=== PATIENT | female | born 1940 | race Caucasian/White ===

== ENCOUNTER 2024-11-06 21:02 | Inpatient (IN) | payer OTHER ==
[~2024-11-06] VITALS: Ht 170.2 cm; Wt 52.2 kg
--- NOTE | 2024-11-06 21:24 | ED.PDOC ---
History of Present Illness HPI Comments 84-year-old female that came to ER via EMS due to nausea vomiting. Per EMS, patient was picked up at home, where patient has been having episodes of nausea and vomiting all day. Noted loss of appetite for fear of throwing up when she eats. She fell asleep, only to wake up still feeling nauseated, she became very anxious and short of breath. Patient does have history of CHF, was saturating 90% on room air on scene with a blood sugar of 199 Chief Complaint: Nausea and vomiting Time Seen by MD: 21:23 Allergies: Coded Allergies: Morphine and Codeine (Verified Allergy, Unknown, 11/06/24) Information Source: Patient Mode of Arrival: EMS Severity: Moderate Timing: Hours Duration: Since onset Prehospital treatment: None Past Medical History PAST MEDICAL HISTORY: Cancer, CHF Surgical History (Other): Colonoscopy bag, indwelling Boucher catheter FINANCIAL SERVICES AGENT History: Denies all FINANCIAL SERVICES AGENT Hx Family History Family History: Reviewed,noncontributory to illness Social History Smoker: Non-Smoker Alcohol: Denies ETOH Use Drugs: Denies Drug Use Lives In: Home Constitutional: reports: weakness; denies: chills, diaphoresis, fatigue, fever, malaise, sweats, others EENTM: denies: blurred vision, double vision, ear bleeding, ear discharge, ear drainage, ear pain, ear ringing, eye pain, eye redness, hearing loss, mouth pain, mouth swelling, nasal discharge, nose bleeding, nose congestion, nose pain, photophobia, tearing, throat pain, throat swelling, voice changes, others Respiratory: reports: shortness of breath, SOB with excertion; denies: cough, hemoptysis, orthopnea, SOB at rest, stridor, wheezing, others Cardiovascular: denies: chest pain, dizzy spells, diaphoresis, Dyspnea on exertion, edema, irregular heart beat, left arm pain, lightheadedness, palpitations, PND, syncope, others Gastrointestinal: reports: nausea, poor appetite, vomiting; denies: abdomen distended, abdominal pain, blood streaked bowels, constipated, diarrhea, dysphagia, difficulty swallowing, hematemesis, melena, poor fluid intake, rectal bleeding, rectal pain, others Genitourinary: denies: abnormal vagina bleeding, burning, dyspareunia, dysuria, flank pain, frequency, hematuria, incontinence, pain, , vagina discharge, urgency, others Neurological: denies: dizziness, fainting, headache, left sided numbness, left sided weakness, numbness, paresthesia, pre-existing deficit, right sided numbness, right sided weakness, seizure, speech problems, tingling, tremors, weakness, others Musculoskeletal: denies: back pain, gout, joint pain, joint swelling, muscle pain, muscle stiffness, neck pain, others Integumetry: denies: bruises, change in color, change in hair/nails, dryness, laceration, lesions, lumps, rash, wounds, others Allergic/Immunocompromised: denies: Difficulty Healing, Frequent Infections, Hives, Itching, others Hematologic/Lymphatic: denies: anemia, blood clots, easy bleeding, easy bruising, swollen glands, others Endocrine: denies: excessive hunger, excessive sweating, excessive thirst, excessive urination, flushing, intolerance to cold, intolerance to heat, unexplained weight gain, unexplained weight loss, others Psychiatric: reports: anxiety; denies: bipolar disorder, depression, hopeless, panic disorder, schizophrenia, sleepless, suicidal, others Physical Exam General Appearance: Mild Distress, Normal HEENT: Normal ENT Inspection, Pharynx Normal, TMs Normal Neck: Full Range of Motion, Non-Tender, Normal, Normal Inspection Respiratory: Chest Non-Tender, Lungs Clear, No Accessory Muscle Use, No Respiratory Distress, Normal Breath Sounds Cardiovascular: No Edema, No JVD, No Murmur, No Gallop, Normal Peripheral Pulses, Regular Rate/Rhythm Breast Exam: Deferred Gastrointestinal: No Organomegaly, Non Tender, No Pulsatile Mass, Normal Bowel Sounds, Soft Genitalia: Deferred Pelvic: Deferred Rectal: Deferred Extremities: No calf tenderness, Normal capillary refill, Normal inspection, Normal range of motion, Non-tender, No pedal edema Musculoskeletal : Apperance: Normal Neurologic: Alert, camera person II-XII nml as Tested, No Motor Deficits, Normal Affect, Normal Mood, No Sensory Deficits Cerebellar Function: Normal Reflexes: Normal Skin: Dry, Normal Color, Warm Lymphatic: No Adenopathy Was a procedure done? Was a procedure done?: No EKG EKG : Pulse Rate (adult): 96 Cardiac Rhythm: NSR Hypertrophy: LVH Differential Dx Considerations may include: Electrolyte imbalance, gastritis, dehydration, urinary tract infection X-Ray, Labs, Meds, VS Vital Signs Date Time Temp Pulse Resp B/P (MAP) Pulse Ox O2 Delivery O2 Flow Rate FiO2 11/06/24 21:24 96 11/06/24 21:11 98.4 94 20 116/66 (83) 94 11/06/24 21:05 96 Lab Test 11/07/24 00:00 11/06/24 23:09 Range/Units Troponin I High Sensitivity Pending 75 *H </=34 ng/L White Blood Count 12.5 H 4.4-10.8 10^3/uL Red Blood Count 4.05 4.0-5.20 10^6/uL Hemoglobin 12.1 L 12.2-16.2 g/dL Hematocrit 36.7 36.0-46.0 % Mean Corpuscular Volume 90.7 80.0-100.0 fL Mean Corpuscular Hemoglobin 29.8 28.0-32.0 pg Mean Corpuscular Hemoglobin Concent 32.9 32.0-36.0 g/dL Red Cell Distribution Width 14.8 H 11.8-14.3 % Platelet Count 243 140-450 10^3/uL Mean Platelet Volume 9.1 6.9-10.8 fL Neutrophils (%) (Auto) 72.6 37.0-80.0 % Lymphocytes (%) (Auto) 21.2 10.0-50.0 % Monocytes (%) (Auto) 6.0 0.0-12.0 % Eosinophils (%) (Auto) 0.0 0.0-7.0 % Basophils (%) (Auto) 0.2 0.0-2.0 % Neutrophils # (Auto) 9.1 H 1.6-8.6 10 ^3/uL Lymphocytes # (Auto) 2.6 0.4-5.4 10 ^3/uL Monocytes # (Auto) 0.8 0-1.3 10 ^3/uL Eosinophils # (Auto) 0 0-0.8 10 ^3/uL Basophils # (Auto) 0 0-0.2 10 ^3/uL Nucleated Red Blood Cells 0.1 % Sodium Level 141 136-145 mmol/L Potassium Level 5.2 H 3.5-5.1 mmol/L Chloride Level 106 98-107 mmol/L Carbon Dioxide Level 27 20-31 mmol/L Anion Gap 8 5-15 Blood Urea Nitrogen 35 H 9-23 mg/dL Creatinine 1.47 H 0.550-1.02 mg/dL Glomerular Filtration Rate Calc 35 >90 mL/min BUN/Creatinine Ratio 23.8 H 10.0-20.0 Serum Glucose 199 H 74-106 mg/dL Calcium Level 10.3 8.7-10.4 mg/dL Magnesium Level 2.2 1.6-2.6 mg/dL Total Bilirubin 1.0 0.2-1.0 mg/dL Aspartate Amino Transferase (AST) 37 13-40 U/L Alanine Aminotransferase (ALT) 20 7-40 U/L Alkaline Phosphatase 100 46-116 U/L Total Protein 6.1 5.7-8.2 g/dL Albumin 3.9 3.2-4.8 g/dL Lipase 39 12-53 U/L Current Medications Medications (Trade) Dose Ordered Sig/Mike Route Start Time Stop Time Status Last Admin Sodium Chloride 1,000 ml @ 1,000 mls/hr Q1H ONCE IV 11/06/24 23:00 11/06/24 23:59 DC 11/06/24 23:48 Ondansetron HCl (Zofran) 4 mg ONCE ONCE IV 11/07/24 00:00 11/07/24 00:01 DC 11/07/24 00:33 [place] [address] Ph: [phone] DIAGNOSTIC IMAGING Diagnostic Imaging Report : [id number] Signed PATIENT: JOSIAH HITCHCOCK ACCT: [id number] UNIT: [id number] : 1940 LOC: ER ROOM / BED: / AGE / SEX: 84 / F ADM STATUS: REG ER SERVICE [id number] ORDERING PHYSICIAN: ANNE ALVAREZ MD PROCEDURE(s): ABPL - CT AB PEL WO CON-NO ORAL OR IV REASON: vomiting ORDER NUMBER(s): [id number], ACCESSION NUMBER(s): [id number] Exam: CT CT AB PEL WO CON-NO ORAL OR IV History: vomiting Comparison Study: None available at time of dictation. Technique: Multidetector spiral CT of the abdomen was performed from lung bases to pubic symphysis. Imaging was performed without IV contrast. Axial, coronal and sagittal multiplanar reformats were obtained from the axial data set by the technologist. Radiation Dose : 1. Abdomen/Pelvis: CTDIvol 5 mGy, DLP 284 mGy*cm. Findings: Evaluation of solid organs is limited due to lack of intravenous contrast use. Lung Bases: Moderate right and small left pleural effusions. 7 mm pulmonary nodule in the right lower lobe. Mild cardiomegaly. Liver: Hepatomegaly No focal lesions. Gallbladder and Biliary Tree: Gallbladder is surgically absent. Spleen: Unremarkable Pancreas: The pancreas is grossly normal in appearance. Adrenal Glands: Unremarkable Kidneys: Kidneys are grossly normal without calculi or hydronephrosis. Bladder: Bladder is decompressed with a Boucher catheter and cannot be adequately assessed. Bowel: The stomach is grossly normal in appearance. Postsurgical changes of the colon consistent with partial colectomy. Left lower quadrant colostomy. The appendix is not visualized; however, no secondary findings of acute appendicitis identified. Ascites: Absent Lymphadenopathy: No mesenteric, retroperitoneal or periportal lymphadenopathy. Abdominal Wall and Mesentery: Unremarkable. Vasculature: The visualized abdominal aorta is normal in size and caliber. Evaluation of abdominal and pelvic vessels is limited due to lack of intravenous contrast. Pelvic Organs: Unremarkable Musculoskeletal: Levoscoliosis of the lumbar spine. Degenerative changes of the left hip joint with small calcific densities surrounding the joint space. 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 Moderate right and small left pleural effusions. 7 mm pulmonary nodule in the right lower lobe. Consider further evaluation with nonemergent CT chest. Ancillary findings as described above. END IMPRESSION: ATED BY: GAIL MARTÍNEZ DO DICTATED DATE/TIME: 11/07/2430 SIGNED BY: GAIL MARTÍNEZ DO SIGNED DATE/TIME: 11/07/2430 CC: 1st troponin is 75. EKG shows no signs of ischemia. White blood cell count is 12.5. Potassium 5.2. BUN 35 creatinine 1.5. Lipase Time of 1ST Reevaluation: 21:18 Reevaluation 1ST: Unchanged Patient Education/Counseling: Diagnosis, Treatment Family Education/Counseling: No Family Present Departure 1 Departure Time of Disposition: 00:40 Impression: Primary Impression: Vomiting Qualified Codes: R11.2 - Nausea with vomiting, unspecified Additional Impressions: Failure to thrive Qualified Codes: R62.7 - Adult failure to thrive Hyperkalemia Acute kidney injury Dehydration Colostomy care Elevated troponin Pneumonia Qualified Codes: J18.9 - Pneumonia, unspecified organism Pleural effusion Pulmonary nodule Disposition: ADMITTED INPATIENT Admit to: ICU Condition: Critical Discharged With: Self Critical Care Note Critical Care Time?: Yes (45 min-critical care time only) Stability Stability form required: No Heart Score Heart Score: Heart Score Response (Comments) Value History N/A 0 EKG N/A 0 Age N/A 0 Risk Factors N/A 0 Troponin N/A 0 Total 0 I personally scribed for ANNE ALVAREZ MD ([email or web address]) on 11/06/24 at 21:23. Electronically submitted by Kerwin Aguirre ([email or web address]). ANNE ALVAREZ MD Nov 06, 2024 21:23
[2024-11-06 23:25] LABS: Basophils # (auto) 0 10 ^3/uL (0-0.2); Basophils % (auto) 0.2 % (0.0-2.0); Eosinophils # (auto) 0 10 ^3/uL (0-0.8); Hematocrit 36.7 % (36.0-46.0); Hemoglobin 12.1 g/dL (12.2-16.2); Lymphocytes # (auto) 2.6 10 ^3/uL (0.4-5.4); Lymphocytes % (auto) 21.2 % (10.0-50.0); Mean Corpuscular Hemoglobin 29.8 pg (28.0-32.0); Mean Corpuscular Hgb Conc. 32.9 g/dL (32.0-36.0); Mean Corpuscular Volume 90.7 fL (80.0-100.0); Monocytes # (auto) 0.8 10 ^3/uL (0-1.3); Neutrophils # (auto) 9.1 10 ^3/uL (1.6-8.6); Neutrophils % (auto) 72.6 % (37.0-80.0); Nucleated Red Blood Cells % 0.1 %; Platelet Count (auto) 243 10^3/uL (140-450); Red Blood Cells 4.05 10^6/uL (4.0-5.20); Red Cell Distribution Width 14.8 % (11.8-14.3); White Blood Cell 12.5 10^3/uL (4.4-10.8)
[2024-11-06 23:38] LABS: Alanine Aminotransferase 20 U/L (7-40); Albumin 3.9 g/dL (3.2-4.8); Alkaline Phosphatase 100 U/L (46-116); Anion Gap 8 (5-15); Aspartate Aminotransferase 37 U/L (13-40); BUN/Creatinine Ratio 23.8 (10.0-20.0); Calcium 10.3 mg/dL (8.7-10.4); Carbon Dioxide 27 mmol/L (20-31); Chloride 106 mmol/L (98-107); Magnesium 2.2 mg/dL (1.6-2.6); Sodium 141 mmol/L (136-145)
[2024-11-06 23:39] LABS: Total Protein 6.1 g/dL (5.7-8.2)
--- NOTE | 2024-11-06 23:44 | DVH ---
CHEST RADIOGRAPH Indication: nauseau Technique: Single frontal view of the chest was obtained Comparison: None Findings/ IMPRESSION: Small bilateral pleural effusions with superimposed infection not excluded.
[2024-11-06] MEDS: SODIUM CHLORIDE 0.9% 1,000 ML IV ONE (23:48)
[2024-11-07] LABS: Blood Urea Nitrogen 35 mg/dL (9-23); Glucose 199 mg/dL (74-106); Potassium 5.2 mmol/L (3.5-5.1)
[2024-11-07 00:12] LABS: Lipase 39 U/L (12-53)
[2024-11-07] MEDS: ONDANSETRON HCL 4 MG/2 ML VIAL IV ONE (00:33)
--- NOTE | 2024-11-07 00:34 | DVH ---
Exam: CT CT AB PEL WO CON-NO ORAL OR IV History: vomiting Comparison Study: None available at time of dictation. Technique: Multidetector spiral CT of the abdomen was performed from lung bases to pubic symphysis. Imaging was performed without IV contrast. Axial, coronal and sagittal multiplanar reformats were ob tained from the axial data set by the technologist. Radiation Dose : 1. Abdomen/Pelvis: CTDIvol 5 mGy, DLP 284 mGy*cm. Findings: Evaluation of solid organs is limited due to lack of intravenous contrast use. Lung Bases: Moderate right and small left pleural effusions. 7 mm pulmonary nodule in the right lower lobe. Mild cardiomegaly. Liver: Hepatomegaly No focal lesions. Gallbladder and Biliary Tree: Gallbladder is surgically absent. Spleen: Unremarkable Pancreas: The pancreas is grossly normal in appearance. Adrenal Glands: Unremarkable Kidneys: Kidneys are grossly normal without calculi or hydronephrosis. Bladder: Bladder is decompressed with a Boucher catheter and cannot be adequately assessed. Bowel: The stomach is grossly normal in appearance. Postsurgical changes of the colon consistent with partial colectomy. Left lower quadrant colostomy. The appendix is not visualized; however, no second amando findings of acute appendicitis identified. Ascites: Absent Lymphadenopathy: No mesenteric, retroperitoneal or periportal lymphadenopathy. Abdominal Wall and Mesentery: Unremarkable. Vasculature: The visualized abdominal aorta is normal in size and caliber. Evaluation of abdominal a nd pelvic vessels is limited due to lack of intravenous contrast. Pelvic Organs: Unremarkable Musculoskeletal: Levoscoliosis of the lumbar spine. Degenerative changes of the left hip joint with s mall calcific densities surrounding the joint space. 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 Moderate right and small left pleural effusions. 7 mm pulmonary nodule in the right lower lobe. Consider further evaluation with nonemergent CT chest. Ancillary findings as described above. END IMPRESSION:
[2024-11-07] MEDS ORDERED: cefTRIAXone SOD 500 MG VL IV ONE (00:45)
[2024-11-07] MEDS: ASPirin-EC 325mg tab PO ONE (01:44)
[2024-11-07] MEDS: cefTRIAXone 1GM/50ML D5W 50 ML IV ONE (01:44)
[2024-11-07] MEDS: SODIUM CHLORIDE 0.9% 1,000 ML IV ONE (01:45)
[2024-11-07 01:54] VITALS: PULSE 93; RESP 18; O2SAT 93
[2024-11-07] MEDS: ACETAMINOPHEN 325 MG TAB PO ONE (02:39)
[2024-11-07] MEDS ORDERED: ACETAMINOPHEN 325 MG TAB PO PRN (04:15)
[2024-11-07] MEDS: AZITHROMYCIN 500MG/ 250ML 250 ML IV ONE (04:40)
[2024-11-07] MEDS ORDERED: NITROGLYCERIN 0.4 MG SL TAB SL PRN (04:45)
[2024-11-07] MEDS ORDERED: MORPHINE SULFATE INJ 2 MG/ml SYRG IV PRN (04:45)
[2024-11-07] MEDS: SODIUM CHLOR 0.9% PF (SALINE LOCK) 10ML VIAL/SYR IV SCH (04:48)
[2024-11-07] MEDS: ONDANSETRON HCL 4 MG/2 ML VIAL IV PRN (04:48)
--- NOTE | 2024-11-07 04:53 | DVHHP2 ---
History of Present Illness Reason for Visit: Nausea with vomiting, unspecified History of Present Illness The patient is a 84-year-old female with past medical history of cancer, CHF, and hypertension who presented to [facility] ED with complaint of nausea and vomiting. Patient reports symptoms progressively get worse with intractable nausea, vomiting, loss of appetite, unable to keep anything food down, generalized weakness, shortness of breaths, getting worse that prompted this visit. Patient was seen and evaluated in the ED, laboratory data shows WBC 12.5, platelets 243, sodium 141, potassium 5.2, BUN 35, creatinine 1.47, GFR 35, glucose 199, lipase 39, troponin 81, blood pressure 115/62, heart rate 94, temperature 98.4 F, O2 saturation 94% on oxygen. Chest x-ray revealing small bilateral pleural effusions with superimposed infection not excluded; abdomen/pelvis CT revealing status post partial colectomy with left lower quadrant colostomy, moderate right and small left pleural effusion, 7 mm pulmonary nodules in the right lower lobe. Patient was started on IV antibiotic regimen azithromycin, please see medication orders section in the computer. On my assessment, patient denies chest pain, no headache, no dizziness, no diaphoresis, currently on oxygen, no diarrhea, no nausea or vomiting at this moment, no fever, no chills. Patient was admitted for further evaluation and medical management. Past Medical History Cancer, CHF, hypertension Past Surgical History Colonoscopy bag, indwelling Boucher catheter Family History Reviewed, noncontributory to the management of this case. Past Social History The patient lives at home, denies smoking, alcohol or illicit drugs abuse. Review of Systems Constitutional: Yes: Weakness; No: Fever, Chills, Sweats, Malaise, Other Eyes: No: Pain, Vision change, Conjunctivae inflammation, Eyelid inflammation, Other, Redness ENT: No: Ear pain, Ear discharge, Nose pain, Nose discharge, Nose congestion, Mouth pain, Mouth swelling, Throat pain, Throat swelling, Other Respiratory: Shortness of breath, SOB with excertion; No: Cough, Dry, Wheezing, Hemoptysis, Pleuritic Pain, Sputum, Wheezing, Other Cardiovascular: No: Chest Pain, Palpitations, Orthopnea, Paroxysmal Noc. Dyspnea, Edema, Lt Headedness, Other Gastrointestinal: Nausea, Vomiting, Other (Poor appetite); No: Abdominal Pain, Diarrhea, Constipation, Melena, Hematochezia Genitourinary: No Dysuria, No Frequency, No Incontinence, No Hematuria, No Retention, No Other Musculoskeletal: No: other, neck pain, shoulder pain, arm pain, back pain, hand pain, leg pain, foot pain Skin: No: Rash, Lesions, Jaundice, Bruising, Other Neurological: No: Weakness, Numbness, Incoordination, Change in speech, Confusion, Seizures, Other Allergies: Coded Allergies: Morphine and Codeine (Verified Allergy, Unknown, 11/06/24) Medications Current Medications Medications Dose Ordered Sig/Mike Route Start Time Stop Time Status Last Admin Dose Admin Ceftriaxone Sodium 50 ml @ 100 mls/hr DAILY@09 IV 11/08/24 09:00 Azithromycin 250 ml @ 125 mls/hr DAILY IV 11/08/24 10:00 Aspirin 81 mg DAILY PO 11/07/24 10:00 Sodium Chloride 10 ml Q8HR IV 11/07/24 06:00 Ondansetron HCl 4 mg Q4HP PRN IV 11/07/24 04:15 Docusate Sodium 100 mg BIDPRN PRN PO 11/07/24 04:15 Acetaminophen 650 mg Q6HP PRN PO 11/07/24 04:15 Exam Vital Signs Vital Signs Date Time Temp Pulse Resp B/P (MAP) Pulse Ox O2 Delivery O2 Flow Rate FiO2 11/07/24 01:54 93 18 115/62 (79) 93 11/07/24 01:54 Room Air* 0 21 11/06/24 21:11 98.4 General Appearance: Alert, Oriented X3, Cooperative, No acute distress HEENT: Atraumatic, PERRLA, EOMI, Mucous membr. moist/pink Respiratory: Normal air movement, Other (Diminished breath sounds) Cardiovascular: Regular rate, Normal S1, Normal S2, No murmurs Abdominal: Normal bowel sounds, Soft, No tenderness, No hepatospenomegaly, No masses Extremities: No clubbing, No cyanosis, No edema, Normal pulses, No tenderness/swelling Skin: No rashes, No breakdown, No significant lesion Neuro: Normal speech, Normal tone, Sensation intact, Cranial nerves 3-12 NL, Reflexes 2+, Other (Generalized weakness) Psych/Mental Status: Mental status NL, Mood NL Labs/Xrays Labs Test 11/07/24 01:50 11/06/24 23:09 Range/Units Troponin I High Sensitivity 81 *H </=34 ng/L White Blood Count 12.5 H 4.4-10.8 10^3/uL Red Blood Count 4.05 4.0-5.20 10^6/uL Hemoglobin 12.1 L 12.2-16.2 g/dL Hematocrit 36.7 36.0-46.0 % Mean Corpuscular Volume 90.7 80.0-100.0 fL Mean Corpuscular Hemoglobin 29.8 28.0-32.0 pg Mean Corpuscular Hemoglobin Concent 32.9 32.0-36.0 g/dL Red Cell Distribution Width 14.8 H 11.8-14.3 % Platelet Count 243 140-450 10^3/uL Mean Platelet Volume 9.1 6.9-10.8 fL Neutrophils (%) (Auto) 72.6 37.0-80.0 % Lymphocytes (%) (Auto) 21.2 10.0-50.0 % Monocytes (%) (Auto) 6.0 0.0-12.0 % Eosinophils (%) (Auto) 0.0 0.0-7.0 % Basophils (%) (Auto) 0.2 0.0-2.0 % Neutrophils # (Auto) 9.1 H 1.6-8.6 10 ^3/uL Lymphocytes # (Auto) 2.6 0.4-5.4 10 ^3/uL Monocytes # (Auto) 0.8 0-1.3 10 ^3/uL Eosinophils # (Auto) 0 0-0.8 10 ^3/uL Basophils # (Auto) 0 0-0.2 10 ^3/uL Nucleated Red Blood Cells 0.1 % Sodium Level 141 136-145 mmol/L Potassium Level 5.2 H 3.5-5.1 mmol/L Chloride Level 106 98-107 mmol/L Carbon Dioxide Level 27 20-31 mmol/L Anion Gap 8 5-15 Blood Urea Nitrogen 35 H 9-23 mg/dL Creatinine 1.47 H 0.550-1.02 mg/dL Glomerular Filtration Rate Calc 35 >90 mL/min BUN/Creatinine Ratio 23.8 H 10.0-20.0 Serum Glucose 199 H 74-106 mg/dL Calcium Level 10.3 8.7-10.4 mg/dL Magnesium Level 2.2 1.6-2.6 mg/dL Total Bilirubin 1.0 0.2-1.0 mg/dL Aspartate Amino Transferase (AST) 37 13-40 U/L Alanine Aminotransferase (ALT) 20 7-40 U/L Alkaline Phosphatase 100 46-116 U/L Total Protein 6.1 5.7-8.2 g/dL Albumin 3.9 3.2-4.8 g/dL Lipase 39 12-53 U/L PATIENT: JOSIAH HITCHCOCK ACCT: [id number] UNIT: [id number] : 1940 LOC: ER ROOM / BED: / AGE / SEX: 84 / F ADM STATUS: REG ER SERVICE ORDERING PHYSICIAN: ANNE ALVAREZ MD PROCEDURE(s): ABPL - CT AB PEL WO CON-NO ORAL OR IV REASON: vomiting ORDER NUMBER(s): [id number], ACCESSION NUMBER(s): [id number] Exam: CT CT AB PEL WO CON-NO ORAL OR IV History: vomiting Comparison Study: None available at time of dictation. Technique: Multidetector spiral CT of the abdomen was performed from lung bases to pubic symphysis. Imaging was performed without IV contrast. Axial, coronal and sagittal multiplanar reformats were obtained from the axial data set by the technologist. Radiation Dose: 1. Abdomen/Pelvis: CTDIvol 5 mGy, DLP 284 mGy*cm. Findings: Evaluation of solid organs is limited due to lack of intravenous contrast use. Lung Bases: Moderate right and small left pleural effusions. 7 mm pulmonary nodule in the right lower lobe. Mild cardiomegaly. Liver: Hepatomegaly No focal lesions. Gallbladder and Biliary Tree: Gallbladder is surgically absent. Spleen: Unremarkable Pancreas: The pancreas is grossly normal in appearance. Adrenal Glands: Unremarkable Kidneys: Kidneys are grossly normal without calculi or hydronephrosis. Bladder: Bladder is decompressed with a Boucher catheter and cannot be adequately assessed. Bowel: The stomach is grossly normal in appearance. Postsurgical changes of the colon consistent with partial colectomy. Left lower quadrant colostomy. The a ppendix is not visualized; however, no secondary findings of acute appendicitis identified. Ascites: Absent Lymphadenopathy: No mesenteric, retroperitoneal or periportal lymphadenopathy. Abdominal Wall and Mesentery: Unremarkable. Vasculature: The visualized abdominal aorta is normal in size and caliber. Evaluation of abdominal and pelvic vessels is limited due to lack of intravenous contrast. Pelvic Organs: Unremarkable Musculoskeletal: Levoscoliosis of the lumbar spine. Degenerative changes of the left hip joint with small calcific densities surrounding the joint space. 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 Moderate right and small left pleural effusions. 7 mm pulmonary nodule in the right lower lobe. Consider further evaluation with nonemergent CT chest. Ancillary findings as described above. ORDERING PHYSICIAN: ANNE ALVAREZ MD PROCEDURE(s): CXRP - CHEST PORTABLE REASON: nauseau ORDER NUMBER(s): [id number], ACCESSION NUMBER(s): [id number] CHEST RADIOGRAPH Indication: nauseau Technique: Single frontal view of the chest was obtained Comparison: None Findings/ IMPRESSION: Small bilateral pleural effusions with superimposed infection not excluded. Assessment/Plan Assessment/Plan Nausea with vomiting, unspecified Adult failure to thrive Hyperkalemia Acute kidney injury Dehydration Hyperglycemia Colostomy care Elevated troponin Pneumonia, unspecified organism Pleural effusion Pulmonary nodule Generalized weakness Plan 1. Admit to telemetry unit 2. Breathing treatment 3. Pain control management 4. IV antibiotic management 5. Management of fluids and electrolytes 6. Consultation for hospitalist 7. Diagnostic test abdomen/pelvis CT 8. DVT prophylaxis-on aspirin 9. Repeat labs CBC, CMP in a.m. 10. Home medication reviewed and reconciled 11. Continue with current medical management 12. Treatment plan discussed with patient and RN. Patient verbalized understanding. Plan discussed with: Patient, Other (RN) My Orders Orders - SEAN BELLAMY DNP Procedure Category Date Status Time Complete Blood Count LAB 11/07/24 Logged 04:03 Comprehensive LAB 11/07/24 Logged Metabolic Panel 04:03 Azithromycin 500mg/ PHA 11/07/24 In Process 250ml (Zithromax 50 04:15 Aspirin Tablet PHA 11/07/24 In Process 10:00 Troponin-I Hs LAB 11/07/24 Logged 07:03 Hemoglobin A1c LAB 11/07/24 Logged 04:03 Allergies LUCIAN 11/07/24 In Process 04:03 Code Status CODE 11/07/24 Transmitted 04:03 Sodium Chloride Lock PHA 11/07/24 In Process (Saline Lock Ns) 06:00 Oxygen Per Hour RT 11/07/24 Transmitted 04:03 Ondansetron Hcl PHA 11/07/24 In Process (Zofran) 04:15 Docusate Sodium PHA 11/07/24 In Process Capsule (Colace 04:15 Fall Risk Precautions LUCIAN 11/07/[address] 04:03 Complete Blood Count LAB 11/08/24 Verified 04:00 Comprehensive LAB 11/08/24 Verified Metabolic Panel 04:00 Cardiac DIET 11/07/24 Transmitted Diet-2gna,Lofat,Lochol Breakfast Condition: Serious LUCIAN 11/07/24 In Process 04:03 Acetaminophen Tablet PHA 11/07/24 In Process (Tylenol Tablet) 04:15 Sequential LUCIAN 11/07/24 In Process Compression Device Ceftriaxone 1gm/50ml PHA 11/08/24 In Process D5w (Rocephin) 09:00 Azithromycin 500mg/ PHA 11/08/24 In Process 250ml (Zithromax 50 10:00 Admit ADMIT 11/07/24 Transmitted 04:32 Nitroglycerin [facility] 11/07/24 Transmitted Sublingual (Ntrostat 04:45 Morphine Sulfate PHA 11/07/24 Transmitted Injection 04:45 Notify Md Of Changes [facility] 11/07/24 Transmitted From Base 04:32 Mock Up Builder For [facility] 11/07/24 Transmitted 24 Hours 04:32 Emergency Dysrhythmia [facility] 11/07/24 Transmitted Protocol 04:32 Rhythm Strips Once [facility] 11/07/24 Transmitted Every Shift 04:32 Oxygen By Nasal RT 11/07/24 Transmitted Cannula 04:32 Problem List: (1) Nausea with vomiting, unspecified (2) Adult failure to thrive (3) Hyperglycemia (4) Pneumonia, unspecified organism (5) Acute kidney injury (6) Colostomy care (7) Dehydration (8) Elevated troponin (9) Pulmonary nodule (10) Pleural effusion (11) Hyperkalemia (12) Generalized weakness Date of Service: Nov 07, 2024 Billing Provider: SEAN BELLAMY DNP Common Visit Codes: [id number] INP/OBS CARE (HIGH) SEAN BELLAMY DNP Nov 07, 2024 04:52
[2024-11-07] MEDS: InsuLIN REG 1unit/0.01ml Soln (100units/ml) IV ONE (06:14)
[2024-11-07] MEDS: SODIUM ZIRCONIUM CYCL 10 GM PAK PO ONE (06:14)
--- NOTE | 2024-11-07 07:26 | ECG ---
[facility] Test Date: 2024-11-06 Test Time: 21:05:05 Pat Name: JOSIAH HITCHCOCK Department: er Room: [address] [place] [address] Gender: F Manager Government: che : 1940 Requested By: ANNE ALVAREZ Order Number: [id number] Reading MD: Measurements Intervals Jackson Rate: 96 P: 80 AL: 155 QRS: -66 QRSD: 147 T: 89 QT: 393 QTc: 497 Interpretive Statements Sinus rhythm Probable left atrial enlargement Nonspecific IVCD with LAD Left ventricular hypertrophy Anterior Q waves, possibly due to LVH Please click the below link to view image of tracing.
[2024-11-07 07:35] VITALS: PULSE 100; RESP 22; O2SAT 99
[2024-11-07 08:33] LABS: Basophils # (auto) 0.1 10 ^3/uL (0-0.2); Basophils % (auto) 1.2 % (0.0-2.0); Eosinophils # (auto) 0 10 ^3/uL (0-0.8); Hematocrit 34.9 % (36.0-46.0); Hemoglobin 11.3 g/dL (12.2-16.2); Lymphocytes # (auto) 3.1 10 ^3/uL (0.4-5.4); Lymphocytes % (auto) 26.2 % (10.0-50.0); Mean Corpuscular Hemoglobin 29.7 pg (28.0-32.0); Mean Corpuscular Hgb Conc. 32.3 g/dL (32.0-36.0); Mean Corpuscular Volume 91.8 fL (80.0-100.0); Monocytes # (auto) 0.8 10 ^3/uL (0-1.3); Monocytes % (auto) 6.3 % (0.0-12.0); Neutrophils # (auto) 7.9 10 ^3/uL (1.6-8.6); Neutrophils % (auto) 66.3 % (37.0-80.0); Nucleated Red Blood Cells % 0.1 %; Platelet Count (auto) 240 10^3/uL (140-450); Red Cell Distribution Width 14.6 % (11.8-14.3); White Blood Cell 11.9 10^3/uL (4.4-10.8)
[2024-11-07 08:50] LABS: Albumin 3.5 g/dL (3.2-4.8); Alkaline Phosphatase 110 U/L (46-116); Anion Gap 11 (5-15); BUN/Creatinine Ratio 21.6 (10.0-20.0); Bilirubin, Total 0.6 mg/dL (0.2-1.0); Calcium 9.8 mg/dL (8.7-10.4); Carbon Dioxide 25 mmol/L (20-31); Chloride 106 mmol/L (98-107); Sodium 142 mmol/L (136-145)
[2024-11-07 08:51] LABS: Alanine Aminotransferase 52 U/L (7-40); Aspartate Aminotransferase 109 U/L (13-40); Blood Urea Nitrogen 43 mg/dL (9-23); Glucose 225 mg/dL (74-106); Potassium 5.3 mmol/L (3.5-5.1); Total Protein 5.3 g/dL (5.7-8.2)
[2024-11-07 09:20] LABS: INR 1.24 (0.9-1.15); Prothrombin Time 12.9 sec (9.3-11.8)
[2024-11-07 10:03] LABS: % Iron Saturation 6.4 % (15-50)
[2024-11-07] MEDS: MULTIPLE VITAMIN TAB PO SCH (10:39)
[2024-11-07] MEDS: ASPirin 81 mg TAB PO SCH (10:40)
[2024-11-07 14:37] LABS: Urine Bacteria FEW /hpf (None Seen); Urine Blood 2+ /uL (Negative); Urine Budding Yeast MODERATE /hpf (None Seen); Urine Clarity Ex.Turbid (Clear); Urine Color Orange (Yellow); Urine Hyaline Cast MANY /lpf (0 - 2); Urine Mucus FEW (None Seen); Urine Protein, UAD 1+ (Negative); Urine Specific Gravity 1.027 (1.001-1.035); Urine Squamous Epithelial Cell MOD /hpf (<5); Urine Urobilinogen 4 mg/dL (Negative); Urine WBC 167 /hpf (0 - 5); Urine WBC Clumps PRESENT /hpf (None Seen)
[2024-11-07 16:17] LABS: COVID19 ANTIGEN SOFIA FIA NEGATIVE (NEGATIVE); Rapid Influenza A Negative (Negative); Rapid Influenza B Negative (Negative)
--- NOTE | 2024-11-07 20:58 | DVHPNRES ---
Progress Note Date Seen: Nov 07, 2024 Resident Creating Document: GUILLAUME ZAIDI RESIDENT Medical Necessity Reason Pt with a Central, PICC or Fol: No Subjective Review of Systems 84-year-old female patient with history of colon cancer status post colostomy, heart failure, hypertension who presented to the emergency department with a chief complaint of nausea and vomiting. Patient reports she was just admitted to home hospice, and reports symptoms progressively got worse with the intractable nausea and vomiting, loss of appetite she was unable to keep any food down since the last day, since she started having generalized weakness and shortness of breaths. She was evaluated in the emergency department were labs showed leukocytosis, hyperkalemia and CHARAN. Troponins were elevated likely due to NSTEMI type 2, chest x-ray revealed small bilateral pleural effusion with superimposed infections noted included an abdomen pelvis CT revealed status post partial colectomy with left lower quadrant colostomy and moderate right and small left pleural effusion and 7 mm pulmonary nodules in the right lower lobe. Patient was started on antibiotics. Echocardiogram was ordered. Medical records from [facility] was ordered Iron panel Blood culture and respiratory cultures. Patient reports: Feels better Review of Systems: HEENT:Normal, CVS:Normal, RESPIRATORY:Normal, GI:Normal, :Normal, NEURO:Normal Objective vital signs Vital Sign Date Time Temp Pulse Resp B/P (MAP) Pulse Ox O2 Delivery O2 Flow Rate FiO2 11/07/24 18:23 85 25 105/58 (74) 97 11/07/24 07:35 Room Air* 0 21 11/06/24 21:11 98.4 medications Current Medications Medications Dose Ordered Sig/Mike Route Start Time Stop Time Status Last Admin Dose Admin Ceftriaxone Sodium 50 ml @ 100 mls/hr DAILY@09 IV 11/08/24 09:00 Azithromycin 250 ml @ 125 mls/hr DAILY IV 11/08/24 10:00 Aspirin 81 mg DAILY PO 11/07/24 10:00 Sodium Chloride 10 ml Q8HR IV 11/07/24 06:00 11/07/24 14:14 10 ML Ondansetron HCl 4 mg Q4HP PRN IV 11/07/24 04:15 11/07/24 04:48 4 MG Docusate Sodium 100 mg BIDPRN PRN PO 11/07/24 04:15 Acetaminophen 650 mg Q6HP PRN PO 11/07/24 04:15 Nitroglycerin 0.4 mg Q5MINP PRN SL 11/07/24 04:45 Multivitamins 1 tab DAILY PO 11/07/24 10:00 Iron Sucrose 110 ml @ 110 mls/hr DAILY@1200 IV 11/08/24 12:00 11/12/24 12:59 Pantoprazole Sodium 40 mg DAILY IV 11/08/24 10:00 Examination: GENERAL:Normal, HEENT:Normal, NECK:Normal, LUNGS:Abnormal, CVS:Abnormal, ABDOMEN:Normal, MSK:Normal, SKIN:Normal, NEURO:Normal, :Normal laboratory and microbiology Laboratory Tests 11/07/24 08:17 Test 11/07/24 08:17 Range/Units Serum Glucose 225 H 74-106 mg/dL Problem List/Assessment/Plan Problem List/Assessment/Plan Acute hypoxemic respiratory failure likely multifactorial due to community- acquired pneumonia Heart failure exacerbation COPD exacerbation -patient admitted to telemetry -patient started on oxygen supplementation -echocardiogram -patient was started on antibiotics -sputum and blood cultures Acute kidney injury on chronic kidney disease -IV fluids Nausea and vomiting likely due to food-borne intoxication -patient was started on IV fluids Iron Deficiency anemia -iron sucrose Pulmonary nodule 7 mm -monitor -home hospice NSTEMI type 2 -treat underlying condition Case discussed with Dr. Cooney Goals of care discussed with the patient for 26 minutes Code status: DNR DNI Plan discussed with: Patient My Orders My Orders Orders - GUILLAUME ZAIDI RESIDENT Procedure Category Date Status Time Respiratory Culture SHIREEN 11/07/24 Uncollected W/ Gs 08:47 Blood Culture SHIREEN 11/07/24 Uncollected (Pediatric) 08:47 Obtain Mr From Other ORDERS 11/07/24 Transmitted Facility 14:44 Echo 2d Mode Cardiac US 11/07/24 Logged DOP 14:47 Vitamin D, 25-Hydroxy LAB 11/07/24 Logged 20:40 Iron Sucrose Complex PHA 11/08/24 In Process (Venofer) 12:00 Pantoprazole PHA 11/08/24 In Process (Protonix) 10:00 Oxygen By Nasal RT 11/07/24 Transmitted Cannula 20:42 Date of Service: Nov 07, 2024 Billing Provider: JAY JAY COLON MD Common Visit Codes: [id number] INP/OBS CARE(HIGH) GUILLAMUE ZAIDI RESIDENT Nov 07, 2024 20:58 JAY JAY COLON MD Nov 08, 2024 08:55
[2024-11-07 21:30] VITALS: BP 107/63; PULSE 92; RESP 17; TEMP 98.3; O2SAT 96
[2024-11-07 22:14] VITALS: O2SAT 96
[2024-11-07] MEDS: PANTOPRAZOLE 40 MG/10 ML VIAL INJ IV ONE (22:23)
[2024-11-08] VITALS (8 sets, daily range): BP systolic 93–113; BP diastolic 51–65; PULSE 85–91; RESP 16–18; TEMP 97.2–98.6; O2SAT 95–100
[2024-11-08 07:31] LABS: Albumin 3.5 g/dL (3.2-4.8); Anion Gap 10 (5-15); Bilirubin, Total 0.5 mg/dL (0.2-1.0); Calcium 9.9 mg/dL (8.7-10.4); Carbon Dioxide 26 mmol/L (20-31); Chloride 106 mmol/L (98-107); Sodium 142 mmol/L (136-145)
[2024-11-08 07:42] LABS: Potassium 5.3 mmol/L (3.5-5.1)
[2024-11-08 07:43] LABS: Alanine Aminotransferase 112 U/L (7-40); Alkaline Phosphatase 148 U/L (46-116); Aspartate Aminotransferase 204 U/L (13-40); Blood Urea Nitrogen 51 mg/dL (9-23); Glucose 147 mg/dL (74-106); Total Protein 5.4 g/dL (5.7-8.2)
[2024-11-08 07:47] LABS: Basophils # (auto) 0.1 10 ^3/uL (0-0.2); Basophils % (auto) 0.6 % (0.0-2.0); Eosinophils # (auto) 0 10 ^3/uL (0-0.8); Hematocrit 33.6 % (36.0-46.0); Hemoglobin 11.3 g/dL (12.2-16.2); Lymphocytes # (auto) 3.8 10 ^3/uL (0.4-5.4); Lymphocytes % (auto) 35.8 % (10.0-50.0); Mean Corpuscular Hemoglobin 30.8 pg (28.0-32.0); Mean Corpuscular Hgb Conc. 33.5 g/dL (32.0-36.0); Mean Corpuscular Volume 92.1 fL (80.0-100.0); Monocytes # (auto) 0.7 10 ^3/uL (0-1.3); Monocytes % (auto) 6.9 % (0.0-12.0); Neutrophils # (auto) 6.1 10 ^3/uL (1.6-8.6); Neutrophils % (auto) 56.7 % (37.0-80.0); Nucleated Red Blood Cells % 0.3 %; Platelet Count (auto) 196 10^3/uL (140-450); Red Blood Cells 3.65 10^6/uL (4.0-5.20); Red Cell Distribution Width 14.5 % (11.8-14.3); White Blood Cell 10.8 10^3/uL (4.4-10.8)
[2024-11-08] MEDS: cefTRIAXone 1GM/50ML D5W 50 ML IV SCH (10:35)
[2024-11-08] MEDS: AZITHROMYCIN 500MG/ 250ML 250 ML IV SCH (10:35)
[2024-11-08] MEDS: SODIUM ZIRCONIUM CYCL 10 GM PAK PO ONE (10:36)
[2024-11-08] MEDS: PANTOPRAZOLE 40 MG/10 ML VIAL INJ IV SCH (10:36)
--- NOTE | 2024-11-08 14:53 | DVHSR ---
APPROVED REPORT EXAM: Two-dimensional and M-mode echocardiogram with Doppler and color Doppler. Blood Pressure: 101/56 mmHg INDICATION Heart Failure RISK FACTORS Height: 5'7", Weight: 115 DIMENSIONS LVDd6.3 (3.8-5.7cm)LA (2D)4.6 (1.9-4.0cm)Aortic Root2.7 (2.0-3.7cm) LVDs5.9 (2.5-4.0cm)LA (MM) (1.9-4.0cm)Aortic Cusp Exc1.5 (1.5-2.0cm) EF (%) 14.0 (55-70%)Rt. Atrium5.0 (1.9-4.0cm)Asc. Aorta3.5 cm IVSd0.9 (0.7-1.1cm)RV (D)4.1 (1.8-2.4cm) PWd0.8 (0.7-1.1cm) Mitral Valve MitralMitral Stenosis E wave0.88m/sMV Mean GR.mmHg A wave0.47m/sMV Peak GR.mmHg E/A ratio1.92D MVAcm2 DECEL [id number] 1/2 Timems Aortic Valve Aortic ValveAortic Stenosis V10.34m/Laurie Mean GR.3mmHg V21.11m/Laurie Peak GR.5mmHg LVOT Diameter2.2 (1.8-2.4cm)Doppler AVA1.16cm2 AI P 1/2 Haba937.85ms Pulmonic Valve V20.76m/s Tricuspid Valve TR Velocity2.67m/s [id number] LEFT VENTRICLE The left ventricle is severely dilated in size. Left ventricular wall thickness is normal. Ejection fraction is severely decreased and is estimated at 10-15% based on visual estimate. There is severe global hypokinesis and dyskinesis of the anteroseptal wall. There is a large LV apical thrombus naomie suring 2.0 x 1.5 cm in diameter. There is restrictive filling pattern of the left ventricle. RIGHT VENTRICLE The right ventricle is moderately dilated in size. Right ventricular systolic function is moderately to severely decreased. ATRIA Both atria are severely dilated in size. MITRAL VALVE The mitral valve leaflets are tethered. There is [id number] central mitral regurgitation. PULMONIC VALVE Likely normal. TRICUSPID VALVE There is significant malcoaptation with severe central tricuspid regurgitation. PA systolic pressure is estimated at 45 mm Hg. AORTIC VALVE Trileaflet in morphology. There is mild insufficiency. GREAT VESSELS Aortic root and proximal ascending aorta are of normal size. PERICARDIAL EFFUSION No significant pericardial effusion. IVC is of normal size but does not collapse normally with inspi ration. 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 Dilated left ventricle with severely decreased systolic function. Ejection fraction is estimated at 10-15% with severe global hypokinesis and dyskinesis of the anterio r septal wall. Dilated right ventricle with moderately to severely decreased systolic function. Severe tricuspid valve regurgitation with malcoaptation of the leaflets. [id number] central mitral regurgitation. No prior study for comparison.
[2024-11-08] MEDS: IRON SUCROSE COMPLEX 110 ML IV SCH (16:31)
--- NOTE | 2024-11-08 16:31 | DVHINCON2 ---
Date Seen: Nov 08, 2024 Referring Physician MD Hazel Reason for Consultation Large LV apical thrombus, severely reduced HF History of Present Illness This is an 84-year-old female who presented to the emergency room via EMS with a chief complaint of nausea and vomiting. The patient presented with complaints of nausea, vomiting, decreased appetite, and generalized weakness. Denies chest pain, palpitations, diaphoresis, shortness of breath, or syncopal events. She underwent a 12 lead electrocardiogram revealing a sinus rhythm with an associ ated left bundle branch block. Serial troponin levels peaked at 81 ng/L. Follows up in the outpatient setting with primary self storage manager Dr. Gleason. Significant medical history includes congestive heart failure, COPD, colon cancer status post colostomy with current hospice care, chronic kidney disease, anemia, chronic Boucher catheter, and hypertension. Past Medical History Past medical history reviewed. No other significant than mentioned above. Past Surgical History Partial colectomy Cholecystectomy Family History: Patient reports no known family medical history. Family History Family history reviewed. Social History Denies the use of illicit drugs, alcohol, or tobacco use. Allergies: Coded Allergies: Morphine and Codeine (Verified Allergy, Unknown, 11/06/24) Home Meds Home medications reviewed. Current Medications Current Medications Medications (Trade) Dose Ordered Sig/Mike Route PRN Reason Start Time Stop Time Status Last Admin Ceftriaxone Sodium 50 ml @ 100 mls/hr DAILY@09 IV 11/08/24 09:00 11/08/24 10:35 Azithromycin 250 ml @ 125 mls/hr DAILY IV 11/08/24 10:00 11/08/24 10:35 Iron Sucrose 110 ml @ 110 mls/hr DAILY@1200 IV 11/08/24 12:00 11/12/24 12:59 Pantoprazole Sodium (Protonix) 40 mg DAILY IV 11/08/24 10:00 11/08/24 10:36 Review of Systems Constitutional: No symptom reported Ears, Nose, & Throat: No symptom reported Eyes: No symptom reported Neurological: No symptoms reported Pulmonary/Respiratory: No symptom reported Cardiovascular: No symptom reported Gastrointestinal: N/V/poor appetite Genitourinary: No symptom reported Musculoskeletal: No symptom reported Skin: No symptom reported Psychiatric: No symptom reported Endocrine: No symptom reported Hemotologic/Lymphatic: No symptom reported Vital Signs Vital Signs Date Time Temp Pulse Resp B/P (MAP) Pulse Ox O2 Delivery O2 Flow Rate FiO2 1/6/25 12:44 97.5 91 16 113/65 (81) 95 97.5 11/08/24 08:16 Nasal Cannula* 1 24 Physical Exam General Appearance: Cooperative. Pale. Cachectic. In no acute distress Head Exam: Normal inspection Neck Exam: Normal inspection. Non-tender. Normal alignment Pulmonary/Respiratory: Chest non-tender. Diminished bilateral breath sounds Cardiovascular/Chest: Regular rate and rhythm. S1, S2. Sinus rhythm with a associated LBBB. No murmurs. No JVD. Peripheral Pulses: 2+ Radial (R). 2+ Radial (L). 1+ Pedal (R). 1+ Pedal (L) Abdominal Exam: Normal bowel sounds. Soft. Ankle Exam: Negative ankle edema Lower extremities: Negative lower extremity edema Neuro/Mental Status: A&O x3. Coherent but poor historian Thoughts/Psych: Normal thought pattern. Anxious Appearance: In no acute distress Skin Exam: Normal inspection. Pale color. Warm. Dry Labs/Diagnostic Data Labs Test 11/08/24 06:30 11/07/24 15:27 11/07/24 14:26 11/07/24 08:17 Range/Units White Blood Count 10.8 4.4-10.8 10^3/uL Red Blood Count 3.65 L 4.0-5.20 10^6/uL Hemoglobin 11.3 L 12.2-16.2 g/dL Hematocrit 33.6 L 36.0-46.0 % Mean Corpuscular Volume 92.1 80.0-100.0 fL Mean Corpuscular Hemoglobin 30.8 28.0-32.0 pg Mean Corpuscular Hemoglobin Concent 33.5 32.0-36.0 g/dL Red Cell Distribution Width 14.5 H 11.8-14.3 % Platelet Count 196 140-450 10^3/uL Mean Platelet Volume 9.1 6.9-10.8 fL Neutrophils (%) (Auto) 56.7 37.0-80.0 % Lymphocytes (%) (Auto) 35.8 10.0-50.0 % Monocytes (%) (Auto) 6.9 0.0-12.0 % Eosinophils (%) (Auto) 0.0 0.0-7.0 % Basophils (%) (Auto) 0.6 0.0-2.0 % Neutrophils # (Auto) 6.1 1.6-8.6 10 ^3/uL Lymphocytes # (Auto) 3.8 0.4-5.4 10 ^3/uL Monocytes # (Auto) 0.7 0-1.3 10 ^3/uL Eosinophils # (Auto) 0 0-0.8 10 ^3/uL Basophils # (Auto) 0.1 0-0.2 10 ^3/uL Nucleated Red Blood Cells 0.3 % Sodium Level 142 136-145 mmol/L Potassium Level 5.3 H 3.5-5.1 mmol/L Chloride Level 106 98-107 mmol/L Carbon Dioxide Level 26 20-31 mmol/L Anion Gap 10 5-15 Blood Urea Nitrogen 51 H 9-23 mg/dL Creatinine 2.22 H 0.550-1.02 mg/dL Glomerular Filtration Rate Calc 21 >90 mL/min BUN/Creatinine Ratio 23.0 H 10.0-20.0 Serum Glucose 147 H 74-106 mg/dL Calcium Level 9.9 8.7-10.4 mg/dL Total Bilirubin 0.5 0.2-1.0 mg/dL Aspartate Amino Transferase (AST) 204 H 13-40 U/L Alanine Aminotransferase (ALT) 112 H 7-40 U/L Alkaline Phosphatase 148 H 46-116 U/L Total Protein 5.4 L 5.7-8.2 g/dL Albumin 3.5 3.2-4.8 g/dL Vitamin B12 Level 872 211-911 pg/mL Thyroid Stimulating Hormone (TSH) 3.22 0.55-4.78 uIU/mL Influenza Type A Antigen Negative Negative Influenza Type B Antigen Negative Negative SARS-CoV-2 Antigen (Rapid) Negative NEGATIVE Urine Color [place] H Yellow Urine Clarity Ex.turbid Clear Urine pH 5.0 5.0-9.0 Urine Specific [place] 1.027 1.001-1.035 Urine Protein 1+ H Negative Urine Ketones Negative Negative Urine Blood 2+ H Negative /uL Urine Nitrite Negative Negative Urine Bilirubin Negative Negative Urine Urobilinogen 4 H Negative mg/dL Urine Leukocyte Esterase 3+ Negative /uL Urine RBC 104 0 - 4 /hpf Urine WBC 167 0 - 5 /hpf Urine WBC Clumps Present None Seen /hpf Urine Squamous Epithelial Cells Mod <5 /hpf Urine Bacteria Few H None Seen /hpf Urine Hyaline Casts Many 0 - 2 /lpf Urine Mucus Few None Seen Urine Yeast (Budding) Moderate None Seen /hpf Urine Glucose Normal Normal mg/dL Prothrombin Time 12.9 H 9.3-11.8 sec Prothrombin Time INR 1.24 H 0.9-1.15 Hemoglobin A1c 6.2 H <5.7 % A1C Iron Level 13 L 50-170 ug/dL Total Iron Binding Capacity 203 L 250-425 ug/dL Percent Iron Saturation 6.4 L 15-50 % Troponin I High Sensitivity 80 *H </=34 ng/L Vitamin D 25-Hydroxy 85.8 30.0-100 ng/mL Test 11/06/24 23:09 Range/Units Magnesium Level 2.2 1.6-2.6 mg/dL Lipase 39 12-53 U/L Microbiology Date/Time Source Procedure Growth Status 11/07/24 14:26 Urine - Catheterized Urine Culture - Preliminary Resulted Assessment 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 Rosa) The patient with a chief complaint of nausea, vomiting, and poor appetite underwent a transthoracic echocardiogram revealing a large left ventricular apical thrombus with a dilated cardiomyopathy including an LVEF of 10-15% with severe global hypokinesis and dyskinesis of the anterior septal wall. Given history of colon cancer with hospice care and overall fragility, we will hold off on oral anticoagulation therapy as the risks outweigh the benefits at this time. Given labile blood pressures hold off on GDMT for CHF as well. Initiate medications when able to tolerate. Follow-up with Dr. Gleason, primary self storage manager, as scheduled. There is no further cardiac workup indicated at this time. Kindly call if in need to re-consult. Thank you for allowing us to participate in this patient's care. This medical document was created using an electronic medical record system with voice recognition software and computerized dictation system. Although this document has been carefully reviewed, there might still be some phonetic and typographical errors. Occasional wrong-word or ``sound-alike substitutions may have occurred due to the inherent limitations of voice recognition software. These areas are purely typographical due to imperfections of the software programs and do not reflect any compromise in the patient's medical care. Please read the chart carefully and recognize, using context, where these substitutions have occurred. Plan discussed with: Patient, Other NYHA Physical activity limitations: Class3(Marked) ordinary (activity causes symtoms) Date of Service: Nov 08, 2024 Billing Provider: WHITNEY ROSA MD Cardiology Common Codes: [id number] INP/OBS CARE (High) KAILEY BERG GUEST SERVICE HOST Nov 08, 2024 16:31
--- NOTE | 2024-11-08 18:46 | DVHPNRES ---
Progress Note Date Seen: Nov 08, 2024 Resident Creating Document: GUILLAUME ZAIDI RESIDENT Medical Necessity Reason Pt with a Central, PICC or Fol: No Subjective Review of Systems 84-year-old female patient with history of colon cancer status post colostomy, heart failure, hypertension who presented to the emergency department with a chief complaint of nausea and vomiting. Patient reports she was just admitted to home hospice, and reports symptoms progressively got worse with the intractable nausea and vomiting, loss of appetite she was unable to keep any food down since the last day, since she started having generalized weakness and shortness of breaths. She was evaluated in the emergency department were labs showed leukocytosis, hyperkalemia and CHARAN. Troponins were elevated likely due to NSTEMI type 2, chest x-ray revealed small bilateral pleural effusion with superimposed infections noted included an abdomen pelvis CT revealed status post partial colectomy with left lower quadrant colostomy and moderate right and small left pleural effusion and 7 mm pulmonary nodules in the right lower lobe. Patient was started on antibiotics. Per cardiology team: -transthoracic echocardiogram revealing a large left ventricular apical thrombus with a dilated cardiomyopathy including an LVEF of 10-15% with severe global hypokinesis and dyskinesis of the anterior septal wall. -Given history of colon cancer with hospice care and overall fragility, we will hold off on oral anticoagulation therapy as the risks outweigh the benefits at this time. -Given labile blood pressures hold off on GDMT for CHF as well. -Initiate medications when able to tolerate. Follow-up with Dr. Gleason, primary front office clerk, as scheduled. behavioral services tech consult : - [facility] they are unsure if they will accept patient back on services, as patient was just admitted to care 11/05/24. - Patient has informed MARIA TERESA Desai that she does not want to resume hospice care Patient reports: No new complaints Changes from previous H/P or p: No Changes Objective vital signs Vital Sign Date Time Temp Pulse Resp B/P (MAP) Pulse Ox O2 Delivery O2 Flow Rate FiO2 11/08/24 16:36 98.6 91 17 103/62 (76) 95 98.6 11/08/24 08:16 Nasal Cannula* 1 24 Total Intake and Output 11/07/24 11/07/24 11/08/24 15:00 23:00 07:00 Intake Total 110 ml Output Total 200 ml 0 ml Balance -200 ml 110 ml medications Current Medications Medications Dose Ordered Sig/Mike Route Start Time Stop Time Status Last Admin Dose Admin Ceftriaxone Sodium 50 ml @ 100 mls/hr DAILY@09 IV 11/08/24 09:00 11/08/24 10:35 100 MLS/HR Azithromycin 250 ml @ 125 mls/hr DAILY IV 11/08/24 10:00 11/08/24 10:35 125 MLS/HR Aspirin 81 mg DAILY PO 11/07/24 10:00 Sodium Chloride 10 ml Q8HR IV 11/07/24 06:00 11/08/24 13:39 10 ML Ondansetron HCl 4 mg Q4HP PRN IV 11/07/24 04:15 11/08/24 16:28 4 MG Docusate Sodium 100 mg BIDPRN PRN PO 11/07/24 04:15 Acetaminophen 650 mg Q6HP PRN PO 11/07/24 04:15 Nitroglycerin 0.4 mg Q5MINP PRN SL 11/07/24 04:45 Multivitamins 1 tab DAILY PO 11/07/24 10:00 11/08/24 10:34 1 TAB Iron Sucrose 110 ml @ 110 mls/hr DAILY@1200 IV 11/08/24 12:00 11/12/24 12:59 11/08/24 16:31 110 MLS/HR Pantoprazole Sodium 40 mg DAILY IV 11/08/24 10:00 11/08/24 10:36 40 MG Examination: GENERAL:Abnormal, HEENT:Normal, NECK:Normal, LUNGS:Normal, CVS:Abnormal, ABDOMEN:Normal, MSK:Normal, SKIN:Normal, NEURO:Normal, :Normal laboratory and microbiology Laboratory Tests 11/08/24 06:30 Test 11/08/24 06:30 Range/Units Serum Glucose 147 H 74-106 mg/dL Microbiology Date/Time Source Procedure Growth Status 11/07/24 14:26 Urine - Catheterized Urine Culture - Preliminary Resulted Problem List/Assessment/Plan Problem List/Assessment/Plan #Acute hypoxemic respiratory failure likely multifactorial due to community- acquired pneumonia #Heart failure reduced ejection fraction NYHA IV #LVEF of 10-15% with severe global hypokinesis and dyskinesis of the anterior septal wall. #Heart failure exacerbation #COPD exacerbation -patient admitted to telemetry -patient started on oxygen supplementation -echocardiogram -patient was started on antibiotics -sputum and blood cultures - hold off on GDMT - hold off on oral anticoagulation therapy Acute kidney injury on chronic kidney disease -IV fluids Nausea and vomiting likely due to food-borne intoxication -patient was started on IV fluids Iron Deficiency anemia -iron sucrose Pulmonary nodule 7 mm -monitor -home hospice NSTEMI type 2 -treat underlying condition Case discussed with Dr. Iniguez Goals of care discussed with the patient for 26 minutes Code status: DNR/DNI Plan discussed with: Patient My Orders My Orders Orders - GUILLAUME ZAIDI Procedure Category Date Status Time Iron Sucrose Complex PHA 11/08/24 In Process (Venofer) 12:00 Pantoprazole PHA 11/08/24 In Process (Protonix) 10:00 Oxygen By Nasal RT 11/07/24 Transmitted Cannula 20:42 * Funeral Director'S Assistant CONS 11/08/24 Transmitted Consult * Funeral Director'S Assistant CONS 11/08/24 Transmitted Consult Pt Request For Service PT 11/08/24 Logged 13:58 * Cardiology Consult CONS 11/08/24 Transmitted 14:54 Date of Service: Nov 08, 2024 Billing Provider: TANISHA INIGUEZ MD Common Visit Codes: [id number] INP/OBS CARE(HIGH) Secondary Visit Codes: [id number] CARE PLAN 30 MINUTES GUILLAUME ZAIDI RESIDENT Nov 08, 2024 18:46 TANISHA INIGUEZ MD Nov 08, 2024 19:36
[2024-11-09 01:00] VITALS: BP 104/44; PULSE 85; RESP 17; O2SAT 100
[2024-11-09 05:00] VITALS: BP 99/57; PULSE 79; RESP 17; TEMP 98; O2SAT 97
[2024-11-09 08:00] VITALS: PULSE 79
[2024-11-09 09:00] VITALS: BP 112/51; PULSE 79; RESP 16; TEMP 98; O2SAT 95
[2024-11-09 09:43] LABS: Basophils # (auto) 0 10 ^3/uL (0-0.2); Basophils % (auto) 0.2 % (0.0-2.0); Eosinophils # (auto) 0 10 ^3/uL (0-0.8); Hematocrit 34.4 % (36.0-46.0); Hemoglobin 11.3 g/dL (12.2-16.2); Lymphocytes # (auto) 4.8 10 ^3/uL (0.4-5.4); Lymphocytes % (auto) 36.1 % (10.0-50.0); Mean Corpuscular Hemoglobin 30.2 pg (28.0-32.0); Mean Corpuscular Hgb Conc. 32.9 g/dL (32.0-36.0); Mean Corpuscular Volume 91.9 fL (80.0-100.0); Monocytes # (auto) 0.8 10 ^3/uL (0-1.3); Monocytes % (auto) 6.3 % (0.0-12.0); Neutrophils # (auto) 7.6 10 ^3/uL (1.6-8.6); Neutrophils % (auto) 57.4 % (37.0-80.0); Nucleated Red Blood Cells % 0.7 %; Platelet Count (auto) 170 10^3/uL (140-450); Red Blood Cells 3.74 10^6/uL (4.0-5.20); Red Cell Distribution Width 14.2 % (11.8-14.3); White Blood Cell 13.2 10^3/uL (4.4-10.8)
[2024-11-09 09:52] LABS: Chloride 105 mmol/L (98-107); Sodium 142 mmol/L (136-145)
[2024-11-09 09:53] LABS: Anion Gap 11 (5-15); Calcium 9.8 mg/dL (8.7-10.4); Carbon Dioxide 26 mmol/L (20-31); Potassium 5.4 mmol/L (3.5-5.1)
[2024-11-09 09:58] LABS: BUN/Creatinine Ratio 28.6 (10.0-20.0)
[2024-11-09 10:08] LABS: Blood Urea Nitrogen 65 mg/dL (9-23); Glucose 143 mg/dL (74-106)
[2024-11-09] MEDS: DOCUSATE SOD 100 MG CAP PO PRN (10:25)
[2024-11-09] MEDS: SODIUM ZIRCONIUM CYCL 10 GM PAK PO ONE (12:48)
[2024-11-09 13:00] VITALS: BP 111/58; PULSE 82; RESP 16; TEMP 98; O2SAT 99
[2024-11-09 17:00] VITALS: BP 85/45; PULSE 83; RESP 14; TEMP 97.5; O2SAT 98
--- NOTE | 2024-11-09 17:18 | DVHDSRES ---
Discharge Summary Date of Admission Resident Creating Document: GUILLAUME ZAIDI RESIDENT Nov 07, 2024 at 04:32 Date of Discharge: Nov 09, 2024 Admitting Diagnosis Nausea and vomiting, unspecified. Labs/Diagnostic Data: Laboratory Results Test 11/09/24 09:18 11/08/24 06:30 11/07/24 15:27 11/07/24 14:26 White Blood Count 13.2 10^3/uL (4.4-10.8) Red Blood Count 3.74 10^6/uL (4.0-5.20) Hemoglobin 11.3 g/dL (12.2-16.2) Hematocrit 34.4 % (36.0-46.0) Mean Corpuscular Volume 91.9 fL (80.0-100.0) Mean Corpuscular Hemoglobin 30.2 pg (28.0-32.0) Mean Corpuscular Hemoglobin Concent 32.9 g/dL (32.0-36.0) Red Cell Distribution Width 14.2 % (11.8-14.3) Platelet Count 170 10^3/uL (140-450) Mean Platelet Volume 9.2 fL (6.9-10.8) Neutrophils (%) (Auto) 57.4 % (37.0-80.0) Lymphocytes (%) (Auto) 36.1 % (10.0-50.0) Monocytes (%) (Auto) 6.3 % (0.0-12.0) Eosinophils (%) (Auto) 0.0 % (0.0-7.0) Basophils (%) (Auto) 0.2 % (0.0-2.0) Neutrophils # (Auto) 7.6 10 ^3/uL (1.6-8.6) Lymphocytes # (Auto) 4.8 10 ^3/uL (0.4-5.4) Monocytes # (Auto) 0.8 10 ^3/uL (0-1.3) Eosinophils # (Auto) 0 10 ^3/uL (0-0.8) Basophils # (Auto) 0 10 ^3/uL (0-0.2) Nucleated Red Blood Cells 0.7 % Sodium Level 142 mmol/L (136-145) Potassium Level 5.4 mmol/L (3.5-5.1) Chloride Level 105 mmol/L (98-107) Carbon Dioxide Level 26 mmol/L (20-31) Anion Gap 11 (5-15) Blood Urea Nitrogen 65 mg/dL (9-23) Creatinine 2.27 mg/dL (0.550-1.02) Glomerular Filtration Rate Calc 21 mL/min (>90) BUN/Creatinine Ratio 28.6 (10.0-20.0) Serum Glucose 143 mg/dL (74-106) Calcium Level 9.8 mg/dL (8.7-10.4) Total Bilirubin 0.5 mg/dL (0.2-1.0) Aspartate Amino Transferase (AST) 204 U/L (13-40) Alanine Aminotransferase (ALT) 112 U/L (7-40) Alkaline Phosphatase 148 U/L (46-116) Total Protein 5.4 g/dL (5.7-8.2) Albumin 3.5 g/dL (3.2-4.8) Vitamin B12 Level 872 pg/mL (211-911) Thyroid Stimulating Hormone (TSH) 3.22 uIU/mL (0.55-4.78) Influenza Type A Antigen Negative (Negative) Influenza Type B Antigen Negative (Negative) SARS-CoV-2 Antigen (Rapid) Negative (NEGATIVE) Urine Color Beaver (Yellow) Urine Clarity Ex.turbid (Clear) Urine pH 5.0 (5.0-9.0) Urine Specific Crosby 1.027 (1.001-1.035) Urine Protein 1+ (Negative) Urine Ketones Negative (Negative) Urine Blood 2+ /uL (Negative) Urine Nitrite Negative (Negative) Urine Bilirubin Negative (Negative) Urine Urobilinogen 4 mg/dL (Negative) Urine Leukocyte Esterase 3+ /uL (Negative) Urine RBC 104 /hpf (0 - 4) Urine WBC 167 /hpf (0 - 5) Urine WBC Clumps Present /hpf (None Seen) Urine Squamous Epithelial Cells Mod /hpf (<5) Urine Bacteria Few /hpf (None Seen) Urine Hyaline Casts Many /lpf (0 - 2) Urine Mucus Few (None Seen) Urine Yeast (Budding) Moderate /hpf (None Seen) Urine Glucose Normal mg/dL (Normal) Test 11/07/24 08:17 11/06/24 23:09 Prothrombin Time 12.9 sec (9.3-11.8) Prothrombin Time INR 1.24 (0.9-1.15) Hemoglobin A1c 6.2 % A1C (<5.7) Iron Level 13 ug/dL (50-170) Total Iron Binding Capacity 203 ug/dL (250-425) Percent Iron Saturation 6.4 % (15-50) Troponin I High Sensitivity 80 ng/L (</=34) Vitamin D 25-Hydroxy 85.8 ng/mL (30.0-100) Magnesium Level 2.2 mg/dL (1.6-2.6) Lipase 39 U/L (12-53) Other Laboratory Tests 11/09/24 09:18 Brief Hx & Hospital Course: HPI: 84-year-old female patient with history of colon cancer status post colostomy, heart failure, hypertension who presented to the emergency department with a chief complaint of nausea and vomiting. Patient reports she was just admitted to home hospice, and reports symptoms progressively got worse with the intractable nausea and vomiting, loss of appetite she was unable to keep any food down since the last day, since she started having generalized weakness and shortness of breaths. Hospital course: She was evaluated in the emergency department , labs showed leukocytosis, hyperkalemia and CHARAN. Troponins were elevated likely due to NSTEMI type 2, chest x-ray revealed small bilateral pleural effusion with superimposed infections noted included an abdomen pelvis CT revealed status post partial colectomy with left lower quadrant colostomy and moderate right and small left pleural effusion and 7 mm pulmonary nodules in the right lower lobe. Patient was started on empiric antibiotic treatment for possible superimposed pneumonia. An echocardiogram was ordered, it showed large left ventricular apical thrombus with dilated cardiomyopathy including left ventricular ejection fraction of 10- 15% with severe global hypokinesis and dyskinesis of the anterior septal wall. Cardiology was consulted and given patient's history of colon cancer with hospice care and overall fragility they decided to hold off on oral anticoagulation therapy as the risks outweigh the benefits at this time. Given labile blood pressure they also decided to hold off on EGD MT for CHF as well. Making sure we will be given to the patient when able to tolerate. Patient was recommended to follow-up with Dr. Coyle primary instrument repairer helper as scheduled. Critical Care Unit Manager were consulted regarding hospice evaluation on this patient. Patient was accepted by [facility]. Discharge: Patient is stable for discharge, [facility] we will arrange transportation. Follow-up with primary care doctor at hospice and Dr. Coyle (patient's instrument repairer helper) Case discussed with Dr. Iniguez Goals of care discussed with the patient for 28 minutes. Operations or Procedures [place] [address] Ph: [phone] DIAGNOSTIC IMAGING Diagnostic Imaging Report : [id number] Signed PATIENT: JOSIAH HITCHCOCK ACCT: [id number] UNIT: [id number] : 1940 LOC: ER ROOM / BED: / AGE / SEX: 84 / F ADM STATUS: REG ER SERVICE 50 ORDERING PHYSICIAN: ANNE ALVAREZ MD PROCEDURE(s): ABPL - CT AB PEL WO CON-NO ORAL OR IV REASON: vomiting ORDER NUMBER(s): [id number], ACCESSION NUMBER(s): [id number] Exam: CT CT AB PEL WO CON-NO ORAL OR IV History: vomiting Comparison Study: None available at time of dictation. Technique: Multidetector spiral CT of the abdomen was performed from lung bases to pubic symphysis. Imaging was performed without IV contrast. Axial, coronal and sagittal multiplanar reformats were obtained from the axial data set by the technologist. Radiation Dose : 1. Abdomen/Pelvis: CTDIvol 5 mGy, DLP 284 mGy*cm. Findings: Evaluation of solid organs is limited due to lack of intravenous contrast use. Lung Bases: Moderate right and small left pleural effusions. 7 mm pulmonary nodule in the right lower lobe. Mild cardiomegaly. Liver: Hepatomegaly No focal lesions. Gallbladder and Biliary Tree: Gallbladder is surgically absent. Spleen: Unremarkable Pancreas: The pancreas is grossly normal in appearance. Adrenal Glands: Unremarkable Kidneys: Kidneys are grossly normal without calculi or hydronephrosis. Bladder: Bladder is decompressed with a Boucher catheter and cannot be adequately assessed. Bowel: The stomach is grossly normal in appearance. Postsurgical changes of the colon consistent with partial colectomy. Left lower quadrant colostomy. The appendix is not visualized; however, no secondary findings of acute appendicitis identified. Ascites: Absent Lymphadenopathy: No mesenteric, retroperitoneal or periportal lymphadenopathy. Abdominal Wall and Mesentery: Unremarkable. Vasculature: The visualized abdominal aorta is normal in size and caliber. Evaluation of abdominal and pelvic vessels is limited due to lack of intravenous contrast. Pelvic Organs: Unremarkable Musculoskeletal: Levoscoliosis of the lumbar spine. Degenerative changes of the left hip joint with small calcific densities surrounding the joint space. 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 Moderate right and small left pleural effusions. 7 mm pulmonary nodule in the right lower lobe. Consider further evaluation with nonemergent CT chest. Ancillary findings as described above. END IMPRESSION: ATED BY: GAIL MARTÍNEZ DO DICTATED DATE/TIME: 11/07/2430 SIGNED BY: GAIL MARTÍNEZ DO SIGNED DATE/TIME: 11/07/2430 CC: [place] [id number] Ph: [phone] DIAGNOSTIC IMAGING Diagnostic Imaging Report : [id number] Signed PATIENT: JOSIAH HITCHCOCK ACCT: [id number] UNIT: [id number] : 1940 LOC: ER ROOM / BED: / AGE / SEX: 84 / F ADM STATUS: REG ER SERVICE 50 ORDERING PHYSICIAN: ANNE ALVAREZ MD PROCEDURE(s): CXRP - CHEST PORTABLE REASON: nauseau ORDER NUMBER(s): [id number], ACCESSION NUMBER(s): [id number] CHEST RADIOGRAPH Indication: nauseau Technique: Single frontal view of the chest was obtained Comparison: None Findings/ IMPRESSION: Small bilateral pleural effusions with superimposed infection not excluded. ATED BY: GAIL MARTÍNEZ DO DICTATED DATE/TIME: 11/06/242340 SIGNED BY: GAIL MARTÍNEZ DO SIGNED DATE/TIME: 11/06/242340 CC: Condition at Discharge: Fair Final Diagnosis/Problems List #Acute hypoxemic respiratory failure likely multifactorial due to community-acquired pneumonia #Heart failure reduced ejection fraction NYHA IV #LVEF of 10-15% with severe global hypokinesis and dyskinesis of the anterior septal wall. #Heart failure exacerbation #COPD exacerbation #Acute kidney injury on chronic kidney disease #Nausea and vomiting likely due to food intoxication #Iron Deficiency anemia #Pulmonary nodule 7 mm Discharge Disposition: Hospice - Home SNF Discharge Will this Physician continue t: No Discharge Instruct/Medications Diet: Cardiac 2g Na,low cholest Activity: No Restrictions, As Tolerated Follow Up/Referral: follow up with Hospice MD Medications: NO MEDS Discharge Statement: "Patient was advised to return to the ER or call 911 if any headaches, dizziness, shortness of breath, chest pain, abdominal pain, bleeding, fevers, or worsening of medical condition. Patient was counseled about treatment plan, medications, possible side effects, patientverbalized understanding. All questions were answered to the best of my ability. This discharge took greater then 30 minutes in planning, reviewing documentation, counseling the patient, and discussing with other team members." ASSESSMENT ASSESSMENT Assessment #Acute hypoxemic respiratory failure likely multifactorial due to community- acquired pneumonia #Heart failure reduced ejection fraction NYHA IV #LVEF of 10-15% with severe global hypokinesis and dyskinesis of the anterior septal wall. #Heart failure exacerbation #COPD exacerbation #Acute kidney injury on chronic kidney disease #Nausea and vomiting likely due to food intoxication #Iron Deficiency anemia #Pulmonary nodule 7 mm Date of Service: Nov 09, 2024 Billing Provider: TANISHA INIGUEZ MD Common Visit Codes: 31473-NQV/OBS DISCH DAY >30min GUILLAUME ZAIDI RESIDENT Nov 09, 2024 17:18 TANISHA INIGUEZ MD Nov 09, 2024 20:43
== END 2024-11-09 19:50 | disposition hospice, inpatient (51) | DRG 189 ==
LOC: ER 21:02 → EDBD 21:02 → TELE 11-07 04:32 → TELE-WESTW 11-07 21:20
PROVIDERS: ADMIT Internal Medicine Geriatric Medicine; ATTEND Anesthesiology
DX: J96.01 Acute respiratory failure with hypoxia (principal); J15.69 Pneumonia due to other Gram-negative bacteria; I21.A1 Myocardial infarction type 2; I50.23 Acute on chronic systolic (congestive) heart failure; J15.9 Unspecified bacterial pneumonia; J44.1 Chronic obstructive pulmonary disease with (acute) exacerbation; I13.0 Hypertensive heart and chronic kidney disease with heart failure and stage 1 through stage 4 chronic kidney disease, or unspecified chronic kidney disease; N17.9 Acute kidney failure, unspecified; C18.9 Malignant neoplasm of colon, unspecified; I42.0 Dilated cardiomyopathy; R64 Cachexia; Z68.1 Body mass index [BMI] 19.9 or less, adult; J44.0 Chronic obstructive pulmonary disease with (acute) lower respiratory infection; Z20.822 Contact with and (suspected) exposure to COVID-19; D50.9 Iron deficiency anemia, unspecified; E86.0 Dehydration; E87.5 Hyperkalemia; R73.9 Hyperglycemia, unspecified; I36.1 Nonrheumatic tricuspid (valve) insufficiency; I51.3 Intracardiac thrombosis, not elsewhere classified; N18.9 Chronic kidney disease, unspecified; R91.1 Solitary pulmonary nodule; A05.9 Bacterial foodborne intoxication, unspecified; R62.7 Adult failure to thrive; Z51.5 Encounter for palliative care; Z93.3 Colostomy status; Z88.5 Allergy status to narcotic agent; Z90.49 Acquired absence of other specified parts of digestive tract; Z85.038 Personal history of other malignant neoplasm of large intestine
CPT/HCPCS: 36415; 71045; 74176; 80048; 80053; 81001; 82306; 82607; 83036; 83540; 83550; 83690; 83735; 84443; 84484; 85025; 85610; 87086; 87426; 87804; 93005; 93306; G0378; J1756; J2405; J2470